=== PATIENT | female | born 1955 | race Caucasian/White ===

== ENCOUNTER 2022-11-16 23:28 | Emergency (ER) | payer MEDICARE ==
[~2022-11-16] VITALS: Ht 167.6 cm; Wt 58.6 kg
[2022-11-17] MEDS ORDERED: CLINDAMYCIN 300MG PO (01:07)
[2022-11-17 02:04] VITALS: BP 148/89
== END 2022-11-17 02:15 | disposition home or self-care (01) ==
LOC: ED 23:28
DX: L03.021 Acute lymphangitis of right finger (principal); Z23 Encounter for immunization; Z28.310 Unvaccinated for COVID-19
CPT/HCPCS: J0696